=== PATIENT | female | born 1975 | race Two or more races ===

== ENCOUNTER → 2017-01-07 | Outpatient (CLI) | payer OTHER, BC ==
--- NOTE | ~2017-01-07 | US24 ---
[facility] A Service of [facility] RADIOLOGY TEXT RESULTS PATIENT: COREY GAN LOCATION: [facility] : 73 UNIT #: [id number] AGE: [address]: Gonzalez Payan MD SEX: F ORDER DR: [id number] [facility]. [place], [place] [address] [id number] O MR#: [id number] Acc #: [id number] NAME: COREY GAN : 1975 SEX: F STUDY DATE/TIME: 01/07/2017 10:47 UNIT: [facility] ROOM: STUDY DESCRIPTION: US Breast Unilateral Attending Physician: Gonzalez Payan Ordering Physician: Gonzalez Payan Primary Care Physician: Gonzalez Payan MEDICAL IMAGING REPORT This report is preliminary unless electronic signature is present EXAM Targeted ultrasound, left breast. DATE OF EXAM 01/07/2017 INDICATION 41-year-old female presenting for 6-month followup imaging of the left breast with ultrasound for probably benign findings in the left breast. After the ultrasound was performed, a repeat diagnostic mammogram on the left was performed for reassessment of mammographic stability and correlation with ultrasound findings. The patient reports no new problems. No personal or family history of breast cancer. No prior surgeries. TECHNIQUE Sonographic imaging of the left breast was performed in a targeted fashion for assessment of 6-month stability of previously described areas within the left breast. After the ultrasound, repeat diagnostic views of the left breast were performed to correlate with the ultrasound findings. COMPARISON Mammograms 07/01/2016, 12/25/2014, 12/07/2014. Comparison ultrasounds 07/01/2016, 12/07/2014. FINDINGS Please see the separately dictated left breast mammography report, same date, for further details. Patients over the age of 40 are entered into a reminder system with target due date for the next mammogram. A result letter will also be sent to the patient. [facility] A Service [facility] RADIOLOGY TEXT RESULTS PATIENT: COREY GAN LOCATION: [facility] : 73 UNIT #: [id number] AGE: [address]: Gonzalez Payan MD SEX: F ORDER DR: BIRADS: 2 Benign finding. Dictated by... Justin Garcia M.D. THIS IS AN ELECTRONICALLY VERIFIED REPORT Justin Garcia M.D. at 01/09/2017 5:25 PM Dayana TD: 01/07/2017 16:32 JOB #: [id number] MEDICAL IMAGING REPORT COPY
--- NOTE | ~2017-01-07 | MY7 ---
[facility] A Service of [facility] RADIOLOGY TEXT RESULTS PATIENT: COREY GAN LOCATION: [facility] : 73 UNIT #: [id number] AGE: [address]: Gonzalez Payan MD SEX: F ORDER DR: [id number] [facility] [address] [facility]. [place], [place] [address] [id number] O MR#: [id number] Acc #: [id number] NAME: COREY GAN : 1975 SEX: F STUDY DATE/TIME: 01/07/2017 11:49 UNIT: [facility] ROOM: STUDY DESCRIPTION: MY Mammogram Dx Dig Lt Attending Physician: Gonzalez Dickinson M.D. Ordering Physician: Gonzalez Dickinson M.D. Primary Care Physician: Gonzalez Dickinson M.D. MEDICAL IMAGING REPORT This report is preliminary unless electronic signature is present EXAM Targeted left breast ultrasound and left diagnostic mammogram 01/07/2017. INDICATION 41-year-old female presenting for 6-month followup imaging of the left breast with ultrasound for probably benign findings in the left breast. After the ultrasound was performed, a repeat diagnostic mammogram on the left was performed for reassessment of mammographic stability and correlation with ultrasound findings. The patient reports no new problems. No personal or family history of breast cancer. No prior surgeries. TECHNIQUE Sonographic imaging of the left breast was performed in a targeted fashion for assessment of 6-month stability of previously described areas within the left breast. After the ultrasound, repeat diagnostic views of the left breast were performed to correlate with the ultrasound findings. COMPARISON Mammograms 07/01/2016, 12/25/2014, 12/07/2014. Comparison ultrasounds 07/01/2016, 12/07/2014. FINDINGS Communication with the patient was facilitated with a telephone senior research associate throughout the patient counter today. ULTRASOUND FINDINGS Left breast: The patient was scanned independently by the technologist. In the 9 o'clock position left breast 4 cm from the nipple, there is redemonstration of a benign fibroadenoma. This measures about 7 x 5 mm on ultrasound which is unchanged from the prior ultrasound and the fibroadenoma is also stable mammographically. Imaging findings are concordant. In the 9 o'clock position left breast posteriorly, there is STS. [facility] A Service of [facility] RADIOLOGY TEXT RESULTS PATIENT: COREY GAN LOCATION: [facility] : 73 UNIT #: [id number] AGE: [address]: Gonzalez Payan MD SEX: F ORDER DR: redemonstration of a 14 x 6 mm cyst with a scant amount of internal debris within it. This was also present on the prior ultrasound performed in 2014 but not demonstrated on the most recent 2016 ultrasound. It is present on the patient's mammogram and unchanged mammographically. Imaging findings are concordant. In the 3 o'clock position left breast, there is a benign cyst 2 cm from the nipple measuring 9 x 4 mm. It is unchanged from the 2016 ultrasound. Also at 3 o'clock about 1 cm from the nipple more posteriorly, there is a benign-appearing cyst measuring about 12 mm, unchanged from the prior ultrasound. In the 2:30 periareolar left breast, there is a hypoechoic shadowing solid nodule without internal color-flow measuring 7 x 10 mm. This was not documented on either of the prior ultrasounds. A repeat diagnostic mammogram was performed given that a similar sized nodule has been demonstrated on the 2 preceding mammograms in the same clock position of the left breast and demonstrated mammographic stability. A BB was placed on the patient's skin prior to the mammogram to segun the area of the ultrasound finding. Subsequent mammographic views demonstrate that the BB and ultrasound finding corresponds to a stable 10 x 7 mm nodule in the periareolar left breast at about the 2-3 o'clock position. Given that this has been stable since November of 2014 mammographically, this is most characteristic of a benign nodule, most likely reflecting benign fibroadenoma given ultrasound features. An additional tiny cyst was present in the posterior left breast at 3 o'clock measuring only about 5 x 2 mm. MAMMOGRAPHIC FINDINGS: Previously documented fibroadenomas in the left breast and other benign areas of nodularity in the left breast are unchanged mammographically dating back to the 2014 study. Some of these are documented with ultrasound including the fibroadenoma at 9 o'clock, the fibroadenoma at 2 o'clock, and the complicated cyst in the posterior lower inner quadrant left breast at 9 o'clock. The shadowing solid nodule at 2:30 in the left breast on the ultrasound today corresponds to a stable nodule in the periareolar 2:30 position left breast on the patient's mammogram which is now been stable for 2 years, as well. All imaging findings are concordant and given stability are benign in nature. No new suspicious cluster of microcalcifications or new suspicious nodule identified mammographically. Taken together, imaging findings in the left breast are most characteristic of benign findings. The patient is due for a repeat bilateral mammogram in June of 2017 which should return her to an annual screening schedule. Findings and recommendations regarding today's examinations were discussed with the patient here in the department with the assistance of a telephone senior research associate. She voiced understanding and agreement with findings and recommendations for return to a screening mammogram schedule to resume in June 2017. IMPRESSION [facility] A Service of [facility] RADIOLOGY TEXT RESULTS PATIENT: COREY GAN LOCATION: [facility] : 73 UNIT #: [id number] AGE: [address]: Gonzalez Payan MD SEX: F ORDER DR: 1. Complicated examination. Please see the full dictated report. 2. Ultrasound findings in the left breast are most characteristic of benign etiologies including multiple fibroadenomas and multiple cysts as described above. When compared to the prior ultrasound and mammography studies, there has not been a significant interval change in the left breast dating back to November 2014 and these findings given long-term stability are therefore considered benign. The patient should plan on resuming an annual screening mammography regimen in June 2017. Findings and recommendations discussed with the patient with the assistance of a telephone senior research associate today. Bilateral screening mammogram in June 2017 is recommended. Patients over the age of 40 are entered into a reminder system with target due date for the next mammogram. A result letter will also be sent to the patient. BIRADS: 2 Benign finding. Dictated by... Justin Garcia M.D. THIS IS AN ELECTRONICALLY VERIFIED REPORT Justin Garcia M.D. at 01/07/2017 4:57 PM Andrea TD: 01/07/2017 16:28 JOB #: [id number] MEDICAL IMAGING REPORT COPY
== END | disposition home or self-care (01) ==
LOC: CWCC 10:28
DX: D24.2 Benign neoplasm of left breast (principal); N60.02 Solitary cyst of left breast
CPT/HCPCS: 76641; G0206